=== PATIENT | female | born 1995 | race African-American/Black ===

== ENCOUNTER 2019-01-20 03:49 | Emergency (ER) | payer SELFPAY ==
[~2019-01-20] VITALS: Ht 157.5 cm; Wt 77.0 kg
[2019-01-20] MEDS ORDERED: NA PHOS,M-B/NA PHOS,DI-BA ENEMA 118ML PR ONE (07:30)
[2019-01-20 07:56] VITALS: BP 121/79
== END 2019-01-20 08:01 | disposition home or self-care (01) ==
LOC: ER 03:49
DX: K59.00 Constipation, unspecified (principal); Z86.718 Personal history of other venous thrombosis and embolism
CPT/HCPCS: 99283; 99284